=== PATIENT | female | born 1965 | race Two or more races ===

== ENCOUNTER 2017-06-26 10:04 | Emergency (ER) | payer OTHER ==
[2017-06-26 10:09] VITALS: BP 138/78; PULSE 63; TEMP 97.8; BMI 30.7
[2017-06-26] MEDS ORDERED: IBUPROFEN 600 MG TABLET (FP) PO ONE ×2 (11:00→11:02)
[2017-06-26] MEDS ORDERED: ALBUTEROL SO4 0.083% IH SOL 2.5 MG/3 ML VIAL.NEB. NEB ONE ×2 (11:00→11:02)
--- NOTE | 2017-06-26 11:03 | PDOC ---
History of Present Illness - General Chief Complaint: Cold Symptoms Stated Complaint: SICK Time Seen by Provider: 06/26/17 10:44 History Source: Patient Exam Limitations: No Limitations - History of Present Illness Initial Comments: 06/26/17 11:01 52 yr female with cough and hoars voice for 4 days no fever, arrived from [facility] yesterday. Pt denies chest pain or SOB, no medical history or allergies. Severity: reports: mild Past History - Past Medical History Allergies/Adverse Reactions: Allergies Allergy/AdvReac Type Severity Reaction Status Date / Time No Known Allergies Allergy Verified 06/26/17 10:09 Home Medications: Ambulatory Orders Benzocaine/Menthol [Cepacol Sore Throat Lozenge] 1 each MM TID PRN #20 lozenge 06/26/17 COPD: No HTN: Yes - Suicide/Smoking/Psychosocial Hx Smoking History: Never smoked Information on smoking cessation initiated: No Hx Alcohol Use: No Drug/Substance Use Hx: No Substance Use Type: None Respiratory Specific PMHX - Complaint Specific PMHX Angina: No Bronchitis: No Pneumonia: No Pulmonary Embolus: No TB (Tuberculosis): No Review of Systems - Review of Systems Able to Perform ROS?: Yes Is the patient limited Swedish proficient: Yes Constitutional: No: Symptoms Reported HEENTM: Yes: Symptoms Reported Respiratory: Yes: Symptoms reported *Physical Exam - Vital Signs Last Vital Signs Temp Pulse Resp BP Pulse Ox 97.8 F 63 19 138/78 100 06/26/17 10:06 06/26/17 10:06 06/26/17 10:06 06/26/17 10:06 06/26/17 10:06 - Physical Exam General Appearance: Yes: Nourished, Appropriately Dressed HEENT: positive: EOMI, MICHAEL, Normal ENT Inspection, TMs Normal, Pharynx Normal, Muffled/Hoarse voice Neck: positive: Supple. negative: Lymphadenopathy (R), Lymphadenopathy (L), Thyromegaly Respiratory/Chest: positive: Lungs Clear, Normal Breath Sounds. negative: Chest Tender, Rhonchi, Stridor, Wheezing Cardiovascular: positive: Regular Rhythm, Regular Rate Gastrointestinal/Abdominal: positive: Normal Bowel Sounds, Soft Musculoskeletal: positive: Normal Inspection Extremity: positive: Normal Capillary Refill, Normal Inspection, Normal Range of Motion Integumentary: positive: Normal Color, Dry, Warm Neurologic: positive: Fully Oriented, Alert, Normal Mood/Affect, Normal Response , Motor Strength 5 Medical Decision Making - Medical Decision Making 06/26/17 11:03 cc: cough hoars voice for 4 days worse after flying on airplane from no fever no chills has dry cough no medical history or allergies will give motrin and albuterol neb *DC/Admit/Observation/Transfer Diagnosis at time of Disposition: Common cold, Viral URI with cough - Discharge Dispostion Disposition: HOME Condition at time of disposition: Good - Prescriptions Prescriptions: Benzocaine/Menthol [Cepacol Sore Throat Lozenge] 1 each MM TID PRN #20 lozenge PRN Reason: sore throat - Referrals Referrals: Matilda Riddle MD [Primary Care Provider] - [facility] [Outside] - Patient Instructions Printed Discharge Instructions: DI for Common Cold, How to Avoid a Cold or Flu Additional Instructions: drink pleanty of fluids take cepacol for throat pain take motrin 600mg every 6hrs for pain or fever (over the counter advil, motrin or ibuprofen ) any over the counter cough medicine you like such as Delsym or Mucinex follow at the clinic in 24-48hrs for follow up or with Return to ER if worse beber omar cantidad de fluidos rajendra cepacol para el dolor de garg[place] rajendra motrin 600 mg cada 6 horas para el dolor o la fiebre (advil, motrin o ibuprofeno) cualquier medicamento para la tos de venta logan que le guste, jonnie Delsym o Mucinex seguir en la clnica en 24-48 horas para seguimiento Volver a ER si empeora Print Language: EQUATORIAL GUINEAN - Post Discharge Activity Forms/Work/School Notes: Back to Work
== END 2017-06-26 11:20 | disposition home or self-care (01) ==
LOC: JERFT 10:04
PROC: 3E0F7GC Introduction of Other Therapeutic Substance into Respiratory Tract, Via Natural or Artificial Opening (ICD-10-PCS; principal; 2017-06-26)
DX: J06.9 Acute upper respiratory infection, unspecified (principal); B97.89 Other viral agents as the cause of diseases classified elsewhere
CPT/HCPCS: 94640; 99281-25

== ENCOUNTER 2019-02-14 08:43 | Inpatient (IN) | payer OTHER ==
[2019-02-14] MEDS ORDERED: SODIUM CHLORIDE 500 ML IV STA (09:24)
[2019-02-14] MEDS ORDERED: ASPIRIN 81 MG CHEWABLE TABLETS PO ONE (09:24)
--- NOTE | 2019-02-14 09:29 | PDOC ---
History of Present Illness - General Chief Complaint: Headache Stated Complaint: HEADACHE/ WEAKNESS Time Seen by Provider: 02/14/19 09:10 History Source: Patient Exam Limitations: Language Barrier - History of Present Illness Initial Comments: Yulissa Washington is a 53 yo F w a significant pmh of HTN on Norvasc who presents to the [facility] ER via private auto accompanied by her boyfriend with a headache associated with right facial weakness, right arm and leg tingling, nausea, blurry vision, and high blood pressure. The patient states she ran out of her norvasc at home and has not taken the medication for the past 4 or 5 days. The patient states her symptoms all began yesterday morning around 10 am. She thought they would go away but when she woke up today and was still symptomatic she decided to come to the ER to be evaluated. She states the headache is around a 7/10, is not the worst headache of her life, was not worst at onset and gradually worsened over the past 24 hours. She has been feeling abnormal sensations in her right face, right arm and leg since yesterday. She endorses numbness and tingling in her right face, right arm, and right leg, but denies any weakness. The patient endorses mild nausea since yesterday but no emesis. She states her BP measurements at home have ranged from 160-180 systolic which is higher than normal for her. Patient denies having chest pain, SOB, or difficulty breathing. Denies back pain. Denies worst headache of her life. Denies dysuria, frequency, or urgency. Denies having any difficulty walking. Denies any room spinning. LMP: Currently on her period PCP: Dr. Lara Neurologist: None PSH: Allergies: Seasonal, NKDA Social Hx: Drinks beers recreationally. Denies smoking or illicit drug usage. Past History - Past Medical History Allergies/Adverse Reactions: Allergies Allergy/AdvReac Type Severity Reaction Status Date / Time No Known Allergies Allergy Verified 02/14/19 08:57 Home Medications: Ambulatory Orders Amlodipine Besylate [Norvasc -] 10 mg PO DAILY 02/14/19 COPD: No HTN: Yes - Immunization History Immunization Up to Date: Yes - Suicide/Smoking/Psychosocial Hx Smoking History: Never smoked Information on smoking cessation initiated: No Hx Alcohol Use: No Drug/Substance Use Hx: No Substance Use Type: None Review of Systems - Review of Systems Able to Perform ROS?: Yes Comments:: CONSTITUTIONAL: Present: generalized weakness, malaise Absent: fever, chills, diaphoresis, loss of appetite HEENT: Present: Visual changes Absent: rhinorrhea, nasal congestion, throat pain, throat swelling, difficulty swallowing, mouth swelling, ear pain, eye pain CARDIOVASCULAR: Absent: chest pain, syncope, palpitations, irregular heart rate, lightheadedness , peripheral edema RESPIRATORY: Absent: cough, shortness of breath, dyspnea with exertion, orthopnea, wheezing, stridor, hemoptysis GASTROINTESTINAL: Present: Nausea Absent: abdominal pain, abdominal distension, vomiting, diarrhea, constipation, melena, hematochezia GENITOURINARY: Absent: dysuria, frequency, urgency, hesitancy, hematuria, flank pain, genital pain MUSCULOSKELETAL: Absent: myalgia, arthralgia, joint swelling SKIN: Absent: rash, itching, pallor HEMATOLOGIC/IMMUNOLOGIC: Absent: easy bleeding, easy bruising, lymphadenopathy, frequent infections ENDOCRINE: Absent: unexplained weight gain, unexplained weight loss, heat intolerance, cold intolerance NEUROLOGIC: Present: headache, focal weakness and paresthesias Absent: dizziness, unsteady gait, seizure, mental status changes, bladder or bowel incontinence PSYCHIATRIC: Absent: anxiety, depression, suicidal or homicidal ideation, hallucinations. *Physical Exam - Vital Signs Last Vital Signs Temp Pulse Resp BP Pulse Ox 97.8 F 73 16 175/102 H 100 02/14/19 08:58 02/14/19 08:58 02/14/19 08:58 02/14/19 08:58 02/14/19 08:58 - Physical Exam Comments: GENERAL: Well developed, well nourished. Awake and alert. No acute distress. HEENT: Normocephalic, atraumatic. PERRLA, EOMI. No conjunctival pallor. Sclera are non- icteric. Moist mucous membranes. Oropharynx is clear. NECK: Supple. Full ROM. No lymphadenopathy. CARDIOVASCULAR: Regular rate and rhythm. No murmurs, rubs, or gallops. Distal pulses are 2+ and symmetric. PULMONARY: No evidence of respiratory distress. Lungs clear to auscultation bilaterally. No wheezing, rales or rhonchi. ABDOMINAL: Soft. Non-tender. Non-distended. No rebound or guarding. No organomegaly. Normoactive bowel sounds. MUSCULOSKELETAL Normal range of motion at all joints. No bony deformities or tenderness. No CVA tenderness. EXTREMITIES: No cyanosis. No clubbing. No edema. No calf tenderness. SKIN: Warm and dry. Normal capillary refill. No rashes. No jaundice. NEUROLOGICAL: Alert, awake, appropriate. Cranial nerves 2-12 intact. No deficits to light touch in face, upper extremities and lower extremities. No motor deficits in the in face, upper extremities and lower extremities. Normal speech. Gait is normal without ataxia including tandem gait. PSYCHIATRIC: Cooperative. Good eye contact. Appropriate mood and affect. ED Treatment Course - LABORATORY CBC & Chemistry Diagram: 02/14/19 09:24 02/14/19 09:24 - RADIOLOGY Radiology Studies Ordered: Category Date Time Status HEAD CT WITHOUT CONTRAST [CT] Stat CT Scan 02/14/19 09:26 Ordered CHEST X-RAY PORTABLE* [RAD] Stat Radiology 02/14/19 09:25 Ordered Medical Decision Making - Medical Decision Making Yulissa Washington is a 53 yo F w a significant pmh of HTN on [facility] who presents to the [facility] ER via private auto accompanied by her boyfriend with a headache associated with right facial weakness, right arm and leg tingling, nausea, blurry vision, and high blood pressure. The patient states she ran out of her nor[employer] Medical Devices at home and has not taken the medication for the past 4 or 5 days. The patient states her symptoms all began yesterday morning around 10 am. She thought they would go away but when she woke up today and was still symptomatic she decided to come to the ER to be evaluated. She states the headache is around a 7/10, is not the worst headache of her life, was not worst at onset and gradually worsened over the past 24 hours. She has been feeling abnormal sensations in her right face, right arm and leg since yesterday. She endorses numbness and tingling in her right face, right arm, and right leg, but denies any weakness. The patient endorses mild nausea since yesterday but no emesis. She states her BP measurements at home have ranged from 160-180 systolic which is higher than normal for her. Patient denies having chest pain, SOB, or difficulty breathing. Denies back pain. Denies worst headache of her life. Denies dysuria, frequency, or urgency. Denies having any difficulty walking. Denies any room spinning. LMP: Currently on her period Vital Signs Temp Pulse Resp BP Pulse Ox 97.8 F 74 18 164/86 99 02/14/19 08:58 02/14/19 09:47 02/14/19 09:47 02/14/19 09:47 02/14/19 09:47 DDx IBNLT: TIA/CVA, migraine, intracranial hemorrhage/SAH, medication non- compliance, hypertensive emergency/urgency, electrolyte/metabolic disturbance, dehydration, peripheral vertigo Plan: Stroke workup - labs, head ct, urine, EKG, analgesia, aspirin, gentle IV hydration, re-assess, neuro, consult, probable admission to stroke floor/ telemetry Labs: Lipid panel, CK and CKMB abnormal. Head CT: No acute pathology or bleed Neuro Consult: Placed call to Dr. Adair's office. [employer] said he will call back. Spoke with Dr. Vera who is covering. Dr. Vera agrees with our management and says he will come and see the patient later today. Disposition: Admit to stroke floor Called Dr. Lara's office who said to overhead Page Dr. Stuart Gave report to Dr. Stuart who accepted admission to Dr. Lara's service *DC/Admit/Observation/Transfer Diagnosis at time of Disposition: Weakness, Numbness and tingling Headache Qualifiers: Headache type: unspecified Headache chronicity pattern: acute headache Intractability: not intractable Qualified Code(s): R51 - Headache - Discharge Dispostion Condition at time of disposition: Stable Decision to Admit order: Yes - Referrals Referrals: Diane Rios MD [Primary Care Provider] - - Patient Instructions - Post Discharge Activity NIH Stroke Scale - Last Known Well Date/Time & Onset Date Last Known Well: 02/13/19 Time Last Known Well: 10:00 - Initial Evaluation Level of consciousness: Alert Ask patient the month and their age: Answers both correctly Ask patient to open & close eyes; make fist and let go: Obeys both correctly Best gaze (horizontal eye movement): Normal Visual field testing: No visual field loss Facial paresis (Show teeth/raise eyebrows/close eyes tight): Normal symmetrical movement Motor Function: Left Arm: Normal Motor Function: Right Arm: Normal (extends arm 90 (or 45) degrees for 10 seconds without drift Motor Function: Left Leg: Normal (extends leg 30 degrees for 5 seconds without drift) Motor Function: Right Leg: Drift Limb Ataxia: No ataxia Sensory(Use pinprick test arms,legs,trunk,face/side to side): Normal Best language (Describe picture, name items, read sentences): No Aphasia Dysarthria (read several words): Normal articulation Extinction and Inattention: No abnormality - Total Score NIH Stroke Scale Score: 1 tPA Exclusion checklist 3-4.5h - Time Elapsed Date last known well: 02/13/19 Time last known well: 10:00 Elaspsed time: 1 Day(s) and 2 Hour(s) and 26 Minutes - Thrombolytic Therapy Candidate Is patient eligible for thrombolytic therapy: No - Exclusion Criteria 3-4.5 hr SBP greater than 185 or DBP greater than 110mmHg despite tx: No Recent IC/spinal surgery,head trauma or stroke<3mos.: No Hx IC hemorrhage, IC neoplasm, AV malformation or aneurysm: No Active internal bleeding: No Blding diathesis(low plt ct, inc PTT,INR>1.7 or use of NOAC): No Symptoms suggest subarachnoid hemorrhage: No CT demonstrates multilobar infarct(>1/3 cerebral hemiphere): No Arterial puncture at noncompressible site in previous 7 days: No Blood glucose concentration less than 50mg/dL (2.7mmol/L): No - Relative Exclusion Criteria 3-4.5 hr Life expectancy <1 yr or severe co-morbid illness: No : No Patient/family refused: No Rapid improvement: Yes Stroke severity too mild: Yes Recent acute NV (w/in previous 3 months): No Seizure at onset with postictal residual neuro impairments: No Major surgery or serious trauma w/in previous 14 days: No Recent GI or hemorrhage (w/in previous 21 days): No - Add'l Relative Exclusion 3-4.5 hr Age > 80: No Hx of both diabetes AND prior ischemic stroke: No Taking an oral anticoagulant regardless of INR: No NIHSS >25: No - Ineligibility reason(s) Reasons No tPA given: Outside of window - delayed arrival
[2019-02-14] MEDS ORDERED: ACETAMINOPHEN 1000 MG/100 ML VIAL (NON FORMULARY) IVPB ONE (09:31)
[2019-02-14] MEDS ORDERED: ASPIRIN 81 MG CHEWABLE TABLETS ONE (09:33)
[2019-02-14] MEDS ORDERED: ACETAMINOPHEN INJECTION 100 ML IVPB ONE (09:33)
[2019-02-14 09:51] LABS: BASO % 0.7 % (0-2.0); EOS % 8.4 % (0-4.5); HEMATOCRIT 43.2 % (32.4-45.2); HEMOGLOBIN 14.5 GM/dL (10.7-15.3); LYMPH % 33.3 % (8-40); MCH 28.7 pg (25.7-33.7); MCHC 33.5 g/dl (32.0-36.0); MEAN CELL VOLUME 85.6 fl (80-96); MEAN PLT VOLUME 8.5 fl (7.5-11.1); MONO % 7.1 % (3.8-10.2); NEUT % 50.5 % (42.8-82.8); PLATELET COUNT 241 K/MM3 (134-434); RBC 5.04 M/mm3 (3.60-5.2); RDW 13.7 % (11.6-15.6)
[2019-02-14 10:01] LABS: INR 1.02 (0.83-1.09)
[2019-02-14 10:24] LABS: ALBUMIN 4.4 g/dl (3.4-5.0); BILIRUBIN,TOTAL 0.7 mg/dL (0.2-1); BLOOD UREA NITROGEN 13.6 mg/dL (7-18); CALCIUM 9.8 mg/dL (8.5-10.1); CREATININE 0.8 mg/dL (0.55-1.3); POTASSIUM 3.8 mmol/L (3.5-5.1); TOT PROT 8.5 g/dl (6.4-8.2)
[2019-02-14 11:35] LABS: EPI CELLS 0.7 /HPF (0-5/HPF); HYALINE CASTS 0 /lpf (0-8); URINE APPEARANCE Error; URINE BACTERIA 5.6 /hpf (NEGATIVE); URINE BILIRUBIN NEGATIVE (NEGATIVE); URINE COLOR YELLOW; URINE GLUCOSE (UA) NEGATIVE (NEGATIVE); URINE KETONE NEGATIVE (NEGATIVE); URINE LEUK ESTERASE NEGATIVE (NEGATIVE); URINE NITRITE NEGATIVE (NEGATIVE); URINE PROTEIN NEGATIVE (NEGATIVE); URINE RBC 3 /hpf (0-4); URINE UROBILINOGEN 0.2 mg/dL (0.2-1.0); URINE WBC 0 /hpf (0-5)
--- NOTE | 2019-02-14 12:06 | PDOC ---
Documentation entered by Mary Ash SCRIBE, acting as scribe for Kylie Schmidt MD. Kylie Schmidt MD: This documentation has been prepared by the scribe, Mary Ash SCRIBE, under my direction and personally reviewed by me in its entirety. I confirm that the documentation accurately reflects all work, treatment, procedures, and medical decision making performed by me. Attending Attestation - Resident Resident Name: Camilo Feliciano - ED Attending Attestation I have performed the following: I have examined & evaluated the patient, The case was reviewed & discussed with the resident, I agree w/resident's findings & plan, Exceptions are as noted - HPI HPI: 02/14/19 09:44 The patient is a 53-year-old female, with a past medical history of HTN (on Norvasc), who presents to the ED with elevated BP and headache associated with RUE/RLE tingling, RT facial weakness, blurry vision, and nausea that began yesterday morning at 10 AM. The patient reports that she ran out of her BP medication 4-5 days ago. The patient denies any fevers, chills, vomiting, diarrhea, or abdominal pain. Denies any chest pain or shortness of breath. Denies any urinary symptoms. Denies any dizziness or lightheadedness. Allergies: NKA, seasonal. Surgical History: Social History: Reports social drinking. Denies any tobacco or drug use. PCP: Dr. Lara - Physicial Exam PE: 02/14/19 09:46 GENERAL: Awake, alert, and fully oriented, in no acute distress HEAD: No signs of trauma EYES: PERRLA, EOMI, sclera anicteric, conjunctiva clear ENT: Auricles normal inspection, hearing grossly normal, nares patent, oropharynx clear without exudates. Moist mucosa NECK: Normal ROM, supple, no lymphadenopathy, JVD, or masses LUNGS: Breath sounds equal, clear to auscultation bilaterally. No wheezes, and no crackles HEART: Regular rate and rhythm, normal S1 and S2, no murmurs, rubs or gallops ABDOMEN: Soft, nontender, normoactive bowel sounds. No guarding, no rebound. No masses EXTREMITIES: Normal range of motion, no edema. No clubbing or cyanosis. No cords, erythema, or tenderness NEUROLOGICAL: Cranial nerves II through XII grossly intact. Normal speech, normal gait SKIN: Warm, Dry, normal turgor, no rashes or lesions noted. - Medical Decision Making 02/14/19 11:19 Pt presents to the ED complaining of facial numbness, dizziness, and headache. Neurologically intact in the ED except for mildly decreased skin sensation on the R side. Differential included TIA, CVA, less likely subarachnoid. CT negative for bleed. Will check labs and admit to medicine for TIA work up. 02/14/19 12:04
[2019-02-14] MEDS ORDERED: SODIUM CHLORIDE 1,000 ML IV SCH (13:30)
--- NOTE | 2019-02-14 13:50 | HP ---
Admitting History and Physical - Primary Care Physician PCP: Sharon Lara - Admission Chief Complaint: came in for NEWSOME for 3 days History of Present Illness: The patient is a 53-year-old female, with a past medical history of HTN (on Norvasc), who presents to the ED with elevated BP and headache associated with RUE/RLE tingling, RT facial weakness, blurry vision, and nausea that began yesterday morning at 10 AM. The patient reports that she ran out of her BP medication 4-5 days ago. she called her PMD to get a refil she was told that it was sent to pharmacy but when she called pharmacy nothing was available for her she has also been feeling weak and tired and fatigue lately, no CP no SOB History Source: Patient - Past Medical History Cardiovascular: Yes: HTN, Hyperlipdemia - Smoking History Smoking history: Never smoked - Alcohol/Substance Use Hx Alcohol Use: No Home Medications - Allergies Allergies/Adverse Reactions: Allergies Allergy/AdvReac Type Severity Reaction Status Date / Time No Known Allergies Allergy Verified 02/14/19 08:57 - Home Medications Home Medications: Ambulatory Orders Amlodipine Besylate [Norvasc -] 10 mg PO DAILY 02/14/19 Review of Systems - Review of Systems HENT: reports: Other (Headache) Physical Examination Vital Signs: Vital Signs Temperature 97.8 F 02/14/19 08:58 Pulse Rate 56 L 02/14/19 12:25 Respiratory Rate 18 02/14/19 12:25 Blood Pressure 118/68 02/14/19 12:25 O2 Sat by Pulse Oximetry (%) 98 02/14/19 12:25 Constitutional: Yes: Calm Cardiovascular: Yes: Regular Rate and Rhythm, S1, S2 Respiratory: Yes: CTA Bilaterally Gastrointestinal: Yes: Normal Bowel Sounds, Soft Edema: No Neurological: Yes: Alert, Oriented Labs: CBC, BMP 02/14/19 09:24 02/14/19 09:24 Imaging - Results Cat Scan: Report Reviewed Problem List - Problems (1) Headache Assessment/Plan: BP control CT head negative norvas Code(s): R51 - HEADACHE Qualifiers: Headache type: unspecified Headache chronicity pattern: acute headache Intractability: not intractable Qualified Code(s): R51 - Headache (2) Numbness and tingling Assessment/Plan: carotid doppler lipid panel noted gage first let CK trend down- hold off on statin start lovaza /zetia once labs improved ivf hydration trend the CK Code(s): R20.0 - ANESTHESIA OF SKIN; R20.2 - PARESTHESIA OF SKIN (3) HLD (hyperlipidemia) Assessment/Plan: will hold of statin till CK improved start lovaza Code(s): E78.5 - HYPERLIPIDEMIA, UNSPECIFIED
[2019-02-14 14:13] VITALS: BMI 30.8
[2019-02-14] MEDS ORDERED: ACETAMINOPHEN 325 MG TABLET (FP) ONE (15:43)
--- NOTE | 2019-02-14 17:06 | CON.CARD ---
Consult Consult Specialty:: Cardiology Reason for Consultation:: HTN - History of Present Illness History of Present Illness: 53-year-old female, with HTN (on Norvasc), who presents to the ED with elevated BP and headache associated facial asymmetry, blurry vision, and nausea that began yesterday morning at 10 AM. The patient reports that she ran out of her BP medication 4-5 days ago. Feeling better. No dyspnea. No chest pain Stress and Echo were normal in june 2018 - History Source History Provided By: Patient Limitations to Obtaining History: No Limitations - Past Medical History Cardio/Vascular: Yes: HTN, Hyperlipdemia - Alcohol/Substance Use Hx Alcohol Use: No - Smoking History Smoking history: Never smoked Have you smoked in the past 12 months: No Home Medications - Allergies Allergies/Adverse Reactions: Allergies Allergy/AdvReac Type Severity Reaction Status Date / Time No Known Allergies Allergy Verified 02/14/19 08:57 - Home Medications Home Medications: Ambulatory Orders Amlodipine Besylate [Norvasc -] 10 mg PO DAILY 02/14/19 Review of Systems - Review of Systems Constitutional: reports: No Symptoms Eyes: reports: No Symptoms HENT: reports: No Symptoms Neck: reports: No Symptoms Cardiovascular: reports: No Symptoms Respiratory: reports: No Symptoms Gastrointestinal: reports: No Symptoms Genitourinary: reports: No Symptoms Vital Signs: Vital Signs Temperature 97.8 F 02/14/19 13:00 Pulse Rate 54 L 02/14/19 13:00 Respiratory Rate 20 02/14/19 13:00 Blood Pressure 144/84 02/14/19 13:00 O2 Sat by Pulse Oximetry (%) 100 02/14/19 13:00 Constitutional: Yes: Well Nourished, No Distress, Calm Eyes: Yes: Conjunctiva Clear, EOM Intact HENT: Yes: Atraumatic, Normocephalic Neck: Yes: Supple, Trachea Midline Respiratory: Yes: Regular, CTA Bilaterally Gastrointestinal: Yes: Normal Bowel Sounds, Soft Cardiovascular: Yes: Regular Rate and Rhythm JVD: No Carotid Bruit: No PMI: Non-Displaced Heart Sounds: Yes: S1, S2 Murmur: No: Systolic Murmur, Diastolic Murmur Edema: No - Other Data Labs, Other Data: CBC, BMP 02/14/19 09:24 02/14/19 09:24 INR, PTT INR 1.02 (0.83-1.09) 02/14/19 09:24 Troponin, BNP 02/14/19 02/14/19 09:24 15:15 Troponin I < 0.02 < 0.02 Troponin, BNP 02/14/19 02/14/19 09:24 15:15 Troponin I < 0.02 < 0.02 Imaging - Results EKG: Image Reviewed (NSR no ST T chagnes.) Problem List - Problems (1) HTN (hypertension) Code(s): I10 - ESSENTIAL (PRIMARY) HYPERTENSION (2) HLD (hyperlipidemia) Code(s): E78.5 - HYPERLIPIDEMIA, UNSPECIFIED (3) Headache Code(s): R51 - HEADACHE Qualifiers: Headache type: unspecified Headache chronicity pattern: acute headache Intractability: not intractable Qualified Code(s): R51 - Headache Assessment/Plan Transient double vision and facial asymmetry now improved. Severe HTN Continue home BP medications. Had run out of meds now BP improved. Will see as needed.
--- NOTE | 2019-02-14 18:56 | CON.NEURO ---
Consult Consult Specialty:: NEUROLOGY-YORDY ROSADO Reason for Consultation:: ?/ TIA - History of Present Illness History of Present Illness: The patient is a 53-year-old female, with a past medical history of HTN (on Norvasc), who presents to the ED with elevated BP and headache associated with RUE/RLE tingling, RT facial weakness, blurry vision, and nausea that began yesterday morning at 10 AM. The patient reports that she ran out of her BP medication 4-5 days ago. she called her PMD to get a refil she was told that it was sent to pharmacy but when she called pharmacy nothing was available for her -She denies all symptoms now, states feels"a little dizzy" otherwise no symptoms. - History Source History Provided By: Patient - Past Medical History Cardio/Vascular: Yes: HTN, Hyperlipdemia - Alcohol/Substance Use Hx Alcohol Use: No - Smoking History Smoking history: Never smoked Have you smoked in the past 12 months: No Home Medications - Allergies Allergies/Adverse Reactions: Allergies Allergy/AdvReac Type Severity Reaction Status Date / Time No Known Allergies Allergy Verified 02/14/19 08:57 - Home Medications Home Medications: Ambulatory Orders Amlodipine Besylate [Norvasc -] 10 mg PO DAILY 02/14/19 Physical Exam-Neuro Vital Signs: Vital Signs Temperature 97.8 F 02/14/19 13:00 Pulse Rate 57 L 02/14/19 13:00 Respiratory Rate 20 02/14/19 13:00 Blood Pressure 144/84 02/14/19 13:00 O2 Sat by Pulse Oximetry (%) 100 02/14/19 14:00 Labs: CBC, BMP 02/14/19 09:24 02/14/19 09:24 INR, PTT INR 1.02 (0.83-1.09) 02/14/19 09:24 - Neuro Exam DTR's: 1+ Left Achilles, 1+ Right Achilles, 2+ Left Bicep, 2+ Right Bicep, 2+ Left Tricep, 2+ Right Tricep, 2+ Left Brachioradialis, 2+ Right Brachioradialis Babinski: Absent Motor Strength: 5/5: Left Arm, Right Arm, Left Leg, Right Leg (+ RUE levitation( sensory) drift.) Gait: Normal Imaging - Results Cat Scan: Report Reviewed (Reported without acute abn.) Assessment/Plan Pt. with right sensory symptoms, remitted right facial droop, has right UE sensory drift only. DDx. includes left thalamocapsular ischemic event, vert/ basilar TIA. MRI brain Cont. ADSA 81mg daily, high dose statin. Thank you, Sukhdev Vera MD
[2019-02-14] MEDS: OMEGA-3 ACID ETHYL ESTERS (FATTY-ACIDS) 1 GM CAPSULE (FP) PO SCH (21:30)
[2019-02-14] MEDS ORDERED: ACETAMINOPHEN 325 MG TABLET (FP) PO ONE (21:44)
[2019-02-15 08:31] LABS: BASO % 0.8 % (0-2.0); EOS % 8.6 % (0-4.5); HEMATOCRIT 39.5 % (32.4-45.2); HEMOGLOBIN 13.2 GM/dL (10.7-15.3); LYMPH % 26.5 % (8-40); MCH 28.7 pg (25.7-33.7); MCHC 33.5 g/dl (32.0-36.0); MEAN CELL VOLUME 85.6 fl (80-96); MEAN PLT VOLUME 8.5 fl (7.5-11.1); MONO % 5.8 % (3.8-10.2); NEUT % 58.3 % (42.8-82.8); PLATELET COUNT 235 K/MM3 (134-434); RBC 4.61 M/mm3 (3.60-5.2); RDW 13.3 % (11.6-15.6); WHITE BLOOD COUNT 4.3 K/mm3 (4.0-10.0)
[2019-02-15 09:00] LABS: ALBUMIN 3.8 g/dl (3.4-5.0); BILIRUBIN,TOTAL 0.5 mg/dL (0.2-1); BLOOD UREA NITROGEN 11.6 mg/dL (7-18); CALCIUM 8.7 mg/dL (8.5-10.1); CREATININE 0.7 mg/dL (0.55-1.3); MAGNESIUM 2.1 mg/dL (1.8-2.4); POTASSIUM 4.1 mmol/L (3.5-5.1); TOT PROT 7.2 g/dl (6.4-8.2)
--- NOTE | 2019-02-15 10:15 | PN ---
Progress Note (short form) - Note Progress Note: HPI : 53-year-old female, with a past medical history of HTN (on Norvasc), who presents to the ED with elevated BP and headache associated with RUE/RLE tingling, RT facial weakness, blurry vision, and nausea that began yesterday morning at 10 AM. The patient reports that she ran out of her BP medication 4-5 days ago. she called her PMD to get a refil she was told that it was sent to pharmacy but when she called pharmacy nothing was available for her -She denies all symptoms now, states feels"a little dizzy" otherwise no symptoms. FU : no new Sx Dopplers (-), awaiting MRI - History Source History Provided By: Patient - Past Medical History Cardio/Vascular: Yes: HTN, Hyperlipdemia - Alcohol/Substance Use Hx Alcohol Use: No - Smoking History Smoking history: Never smoked Have you smoked in the past 12 months: No Home Medications - Allergies Allergies/Adverse Reactions: Allergies Allergy/AdvReac Type Severity Reaction Status Date / Time No Known Allergies Allergy Verified 02/14/19 08:57 - Home Medications Home Medications: Ambulatory Orders Amlodipine Besylate [Norvasc -] 10 mg PO DAILY 02/14/19 Physical Exam-Neuro Vital Signs: Vital Signs Temperature 98.0 F 02/15/19 09:32 Pulse Rate 68 02/15/19 09:32 Respiratory Rate 20 02/15/19 09:32 Blood Pressure 114/71 02/15/19 09:32 O2 Sat by Pulse Oximetry (%) 99 02/15/19 09:00 CBCD WBC 4.3 K/mm3 (4.0-10.0) 02/15/19 07:18 RBC 4.61 M/mm3 (3.60-5.2) 02/15/19 07:18 Hgb 13.2 GM/dL (10.7-15.3) 02/15/19 07:18 Hct 39.5 % (32.4-45.2) 02/15/19 07:18 MCV 85.6 fl (80-96) 02/15/19 07:18 MCHC 33.5 g/dl (32.0-36.0) 02/15/19 07:18 RDW 13.3 % (11.6-15.6) 02/15/19 07:18 Plt Count 235 K/MM3 (134-434) 02/15/19 07:18 MPV 8.5 fl (7.5-11.1) 02/15/19 07:18 CMP Sodium 141 mmol/L (136-145) 02/15/19 07:18 Potassium 4.1 mmol/L (3.5-5.1) 02/15/19 07:18 Chloride 110 mmol/L (98-107) H 02/15/19 07:18 Carbon Dioxide 25 mmol/L (21-32) 02/15/19 07:18 Anion Gap 5 MMOL/L (8-16) L 02/15/19 07:18 BUN 11.6 mg/dL (7-18) 02/15/19 07:18 Creatinine 0.7 mg/dL (0.55-1.3) 02/15/19 07:18 Calcium 8.7 mg/dL (8.5-10.1) 02/15/19 07:18 Total Bilirubin 0.5 mg/dL (0.2-1) 02/15/19 07:18 AST 24 U/L (15-37) 02/15/19 07:18 ALT 24 U/L (13-61) 02/15/19 07:18 Alkaline Phosphatase 72 U/L (45-117) 02/15/19 07:18 Total Protein 7.2 g/dl (6.4-8.2) 02/15/19 07:18 Albumin 3.8 g/dl (3.4-5.0) 02/15/19 07:18 - Neuro Exam DTR's: 1+ Left Achilles, 1+ Right Achilles, 2+ Left Bicep, 2+ Right Bicep, 2+ Left Tricep, 2+ Right Tricep, 2+ Left Brachioradialis, 2+ Right Brachioradialis Babinski: Absent Motor Strength: 5/5: Left Arm, Right Arm, Left Leg, Right Leg (+ RUE levitation( sensory) drift.) Gait: Normal Imaging - Results Cat Scan: Report Reviewed (Reported without acute abn.) Assessment/Plan Pt. with right sensory symptoms, remitted right facial droop, has right UE sensory drift only. DDx. includes left thalamocapsular ischemic event, vert/basilar TIA. MRI brain-P Dopplers (-) BP improved Cont. ADSA 81mg daily, high dose statin. DR HERNANDEZ
[2019-02-15] MEDS: ASPIRIN 81 MG CHEWABLE TABLETS PO SCH (10:36)
[2019-02-15] MEDS: OMEGA-3 ACID ETHYL ESTERS (FATTY-ACIDS) 1 GM CAPSULE (FP) PO SCH ×2 (10:36→21:28)
--- NOTE | 2019-02-15 10:41 | PN ---
Progress Note, Physician History of Present Illness: no complaints - Current Medication List Current Medications: Active Medications Amlodipine Besylate (Norvasc -) 10 mg PO DAILY [facility] Aspirin (Asa -) 81 mg PO DAILY [facility] Last Admin: 02/15/19 10:36 Dose: 81 mg Atorvastatin Calcium (Lipitor -) 40 mg PO HS [facility] [id number] Ethyl Esters (Lovaza -) 2 gm PO BID [facility] Last Admin: 02/15/19 10:36 Dose: 2 gm - Objective Vital Signs: Vital Signs Temperature 98.0 F 02/15/19 09:32 Pulse Rate 68 02/15/19 09:32 Respiratory Rate 20 02/15/19 09:32 Blood Pressure 114/71 02/15/19 09:32 O2 Sat by Pulse Oximetry (%) 99 02/15/19 09:00 Cardiovascular: Yes: Regular Rate and Rhythm Respiratory: Yes: Regular, CTA Bilaterally Gastrointestinal: Yes: Normal Bowel Sounds, Soft Neurological: Yes: Alert, Oriented Labs: CBC, BMP 02/15/19 07:18 02/15/19 07:18 INR, PTT INR 1.02 (0.83-1.09) 02/14/19 09:24 Assessment/Plan - Problems (1) Headache Assessment/Plan: BP control CT head negative norvasc mri Code(s): R51 - HEADACHE Qualifiers: Headache type: unspecified Headache chronicity pattern: acute headache Intractability: not intractable Qualified Code(s): R51 - Headache (2) Numbness and tingling Assessment/Plan: carotid doppler lipid panel noted gage first let CK trend down- restart statin start lovaza /zetia once labs improved ivf hydration trend the CK Code(s): R20.0 - ANESTHESIA OF SKIN; R20.2 - PARESTHESIA OF SKIN (3) HLD (hyperlipidemia) Assessment/Plan: resume statin start lovaza Code(s): E78.5 - HYPERLIPIDEMIA, UNSPECIFIED
--- NOTE | 2019-02-15 11:34 | EKG ---
Test Reason : Blood Pressure : / mmHG Vent. Rate : 072 BPM Atrial Rate : 072 BPM P-R Int : 106 ms QRS Dur : 110 ms QT Int : 442 ms P-R-T Axes : 048 018 011 degrees QTc Int : 483 ms POOR DATA QUALITY, INTERPRETATION MAY BE ADVERSELY AFFECTED SINUS RHYTHM WITH SHORT OH OTHERWISE NORMAL ECG NO PREVIOUS ECGS AVAILABLE Confirmed by KWABENA AYALA MD ([id number]) on 02/15/2019 11:33:43 AM Referred By: Confirmed By:KWABENA AYALA MD
[2019-02-15] MEDS: amLODIPine BESYLATE 10 MG TABLET (FP) PO SCH (21:29)
[2019-02-15] MEDS ORDERED: ACETAMINOPHEN 325 MG TABLET (FP) ONE (21:34)
[2019-02-15] MEDS ORDERED: ATORVASTATIN CA 40 MG TABLET (FP) PO SCH (22:00)
[2019-02-16] MEDS: OMEGA-3 ACID ETHYL ESTERS (FATTY-ACIDS) 1 GM CAPSULE (FP) PO SCH (10:04)
[2019-02-16] MEDS: ASPIRIN 81 MG CHEWABLE TABLETS PO SCH (10:04)
[2019-02-16] MEDS: amLODIPine BESYLATE 10 MG TABLET (FP) PO SCH (10:05)
[2019-02-16] MEDS ORDERED: BISACODYL 5 MG TABLET.DR (FP) PO ONE (10:26)
--- NOTE | 2019-02-16 10:26 | PN ---
Progress Note, Physician - Current Medication List Current Medications: Active Medications Amlodipine Besylate (Norvasc -) 10 mg PO DAILY [facility] Last Admin: 02/16/19 10:05 Dose: Not Given Aspirin (Asa -) 81 mg PO DAILY [facility] Last Admin: 02/16/19 10:04 Dose: 81 mg Atorvastatin Calcium (Lipitor -) 40 mg PO HS [facility] Last Admin: 02/15/19 21:28 Dose: Not Given Bisacodyl (Dulcolax -) 10 mg PO ONCE ONE Stop: 02/16/19 10:27 Nebivolol (Bystolic -) 5 mg PO DAILY [facility] [id number] Ethyl Esters (Lovaza -) 2 gm PO BID [facility] Last Admin: 02/16/19 10:04 Dose: 2 gm - Objective Vital Signs: Vital Signs Temperature 98.2 F 02/16/19 06:00 Pulse Rate 58 L 02/16/19 06:00 Respiratory Rate 20 02/16/19 06:00 Blood Pressure 133/75 02/16/19 06:00 O2 Sat by Pulse Oximetry (%) 99 02/15/19 09:00 Cardiovascular: Yes: Regular Rate and Rhythm Respiratory: Yes: Regular, CTA Bilaterally Gastrointestinal: Yes: Normal Bowel Sounds, Soft Labs: CBC, BMP 02/15/19 07:18 02/15/19 07:18 INR, PTT INR 1.02 (0.83-1.09) 02/14/19 09:24 Assessment/Plan - Problems (1) Headache Assessment/Plan: BP high today add bystolic CT head negative norvasc mri no stroke Code(s): R51 - HEADACHE Qualifiers: Headache type: unspecified Headache chronicity pattern: acute headache Intractability: not intractable Qualified Code(s): R51 - Headache (2) Numbness and tingling Assessment/Plan: carotid doppler lipid panel noted gage first let CK trend down- restart statin start lovaza /zetia once labs improved ivf hydration trend the CK Code(s): R20.0 - ANESTHESIA OF SKIN; R20.2 - PARESTHESIA OF SKIN (3) HLD (hyperlipidemia) Assessment/Plan: resume statin start lovaza Code(s): E78.5 - HYPERLIPIDEMIA, UNSPECIFIED
[2019-02-16] MEDS ORDERED: NEBIVOLOL 5 MG TABLET (FP) PO SCH (10:30)
[2019-02-16] MEDS ORDERED: PT OWN MED DRAWER 7, Y5N ONE ×2 (12:03→12:07)
--- NOTE | 2019-02-16 12:16 | PN ---
Progress Note (short form) - Note Progress Note: HPI : 53-year-old female, with a past medical history of HTN (on Norvasc), who presents to the ED with elevated BP and headache associated with RUE/RLE tingling, RT facial weakness, blurry vision, and nausea that began yesterday morning at 10 AM. The patient reports that she ran out of her BP medication 4-5 days ago. she called her PMD to get a refil she was told that it was sent to pharmacy but when she called pharmacy nothing was available for her -She denies all symptoms now, states feels"a little dizzy" otherwise no symptoms. FU : no new Sx , Bp slightly elevated Dopplers (-), MRI BRAIN (-) - History Source History Provided By: Patient - Past Medical History Cardio/Vascular: Yes: HTN, Hyperlipdemia - Alcohol/Substance Use Hx Alcohol Use: No - Smoking History Smoking history: Never smoked Have you smoked in the past 12 months: No Home Medications - Allergies Allergies/Adverse Reactions: Allergies Allergy/AdvReac Type Severity Reaction Status Date / Time No Known Allergies Allergy Verified 02/14/19 08:57 - Home Medications Home Medications: Ambulatory Orders Amlodipine Besylate [Norvasc -] 10 mg PO DAILY 02/14/19 Physical Exam-Neuro Vital Signs: Vital Signs Vital Signs Temperature 98 F 02/16/19 10:00 Pulse Rate 60 02/16/19 10:00 Respiratory Rate 20 02/16/19 10:00 Blood Pressure 161/100 02/16/19 10:30 O2 Sat by Pulse Oximetry (%) 98 02/16/19 09:00 CBCD WBC 4.3 K/mm3 (4.0-10.0) 02/15/19 07:18 RBC 4.61 M/mm3 (3.60-5.2) 02/15/19 07:18 Hgb 13.2 GM/dL (10.7-15.3) 02/15/19 07:18 Hct 39.5 % (32.4-45.2) 02/15/19 07:18 MCV 85.6 fl (80-96) 02/15/19 07:18 MCHC 33.5 g/dl (32.0-36.0) 02/15/19 07:18 RDW 13.3 % (11.6-15.6) 02/15/19 07:18 Plt Count 235 K/MM3 (134-434) 02/15/19 07:18 MPV 8.5 fl (7.5-11.1) 02/15/19 07:18 CMP Sodium 141 mmol/L (136-145) 02/15/19 07:18 Potassium 4.1 mmol/L (3.5-5.1) 02/15/19 07:18 Chloride 110 mmol/L (98-107) H 02/15/19 07:18 Carbon Dioxide 25 mmol/L (21-32) 02/15/19 07:18 Anion Gap 5 MMOL/L (8-16) L 02/15/19 07:18 BUN 11.6 mg/dL (7-18) 02/15/19 07:18 Creatinine 0.7 mg/dL (0.55-1.3) 02/15/19 07:18 Calcium 8.7 mg/dL (8.5-10.1) 02/15/19 07:18 Total Bilirubin 0.5 mg/dL (0.2-1) 02/15/19 07:18 AST 24 U/L (15-37) 02/15/19 07:18 ALT 24 U/L (13-61) 02/15/19 07:18 Alkaline Phosphatase 72 U/L (45-117) 02/15/19 07:18 Total Protein 7.2 g/dl (6.4-8.2) 02/15/19 07:18 Albumin 3.8 g/dl (3.4-5.0) 02/15/19 07:18 - Neuro Exam DTR's: 1+ Left Achilles, 1+ Right Achilles, 2+ Left Bicep, 2+ Right Bicep, 2+ Left Tricep, 2+ Right Tricep, 2+ Left Brachioradialis, 2+ Right Brachioradialis Babinski: Absent Motor Strength: 5/5: Left Arm, Right Arm, Left Leg, Right Leg (+ RUE levitation( sensory) drift.) Gait: Normal Imaging - Results Cat Scan: Report Reviewed (Reported without acute abn.) Assessment/Plan Pt. with right sensory symptoms, remitted right facial droop, has right UE sensory drift only. DDx. includes left thalamocapsular ischemic event, vert/basilar TIA. MRI brain-(-) Dopplers (-) BP improved Cont. ADSA 81mg daily, high dose statin. neurologically cleared for DC DR HERNANDEZ
[2019-02-16 13:33] VITALS: TEMP 98.2
--- NOTE | 2019-02-16 14:11 | DS ---
Physical Examination Vital Signs: Vital Signs Temperature 98.2 F 02/16/19 13:32 Pulse Rate 82 02/16/19 13:32 Respiratory Rate 20 02/16/19 13:32 Blood Pressure 125/87 02/16/19 13:32 O2 Sat by Pulse Oximetry (%) 98 02/16/19 09:00 Labs: CBC, BMP 02/15/19 07:18 02/15/19 07:18 Discharge Summary Reason For Visit: SENSORY DEFICIT PRESENT Current Active Problems HLD (hyperlipidemia) (Acute) HTN (hypertension) (Acute) Headache (Acute) Numbness and tingling (Acute) Weakness (Acute) Hospital Course: ADMITTED WITH HEADACHES AND PARESTHESIA SYMPTOMS RESOLVED AND MRI NEG FOR CVA PT WAS OUT OF MEDS COMPLIANCE DISCUSSED AND BYSTOLIC ADDED Condition: Stable - Instructions Diet, Activity, Other Instructions: you need to see dr sveta carrasquillo to check blood pressure you need a blood test to check on your muscle enzymes Referrals: Diane Rios MD [Primary Care Provider] - 1 Week - Home Medications Comprehensive Discharge Medication List: Ambulatory Orders Amlodipine Besylate [Norvasc -] 10 mg PO DAILY 02/14/19 Atorvastatin Ca [Lipitor] 40 mg PO HS #30 tablet 02/16/19 Nebivolol [Bystolic -] 5 mg PO DAILY #30 tab 02/16/19
[2019-02-16 14:38] VITALS: BP 130/9; PULSE 78
== END 2019-02-16 15:00 | disposition home or self-care (01) | DRG 47 ==
LOC: JER 08:43 → JERBED 11:28 → J4W 13:24
PROVIDERS: ADMIT Family Medicine; ATTEND Family Medicine
DX: G45.9 Transient cerebral ischemic attack, unspecified (principal); R20.0 Anesthesia of skin; R51 Headache; E78.5 Hyperlipidemia, unspecified; I10 Essential (primary) hypertension; R53.1 Weakness; T46.5X6A Underdosing of other antihypertensive drugs, initial encounter; H53.2 Diplopia
CPT/HCPCS: 36415; 70450-TC; 70551-TC; 71045-TC-FY; 80053; 80061; 81003; 82550; 82553; 83036; 83721; 83735; 84439; 84443; 84484; 84703; 85025; 85610; 93005; 93010; 93880-TC; 99284-25; J0131; J7030

== ENCOUNTER 2023-08-10 12:39 | Emergency (ER) | payer OTHER ==
[2023-08-10 12:45] VITALS: RESP 18; TEMP 97.8; BMI 27.1
[2023-08-10] MEDS ORDERED: predniSONE 20 MG TABLET (UD) ONE (13:53)
[2023-08-10] MEDS ORDERED: ACETAMINOPHEN 325 MG TABLET (FP) ONE (13:54)
[2023-08-10] MEDS: predniSONE 20 MG TABLET (UD) PO ONE (14:03)
[2023-08-10] MEDS: ACETAMINOPHEN 325 MG TABLET (FP) PO ONE (14:03)
[2023-08-10 14:12] LABS: BASO % 0.7 % (0-2.0); EOS % 3.7 % (0-4.5); HEMATOCRIT 37.7 % (32.4-45.2); HEMOGLOBIN 12.4 GM/dL (10.7-15.3); LYMPH % 23.4 % (8-40); MCH 27.5 pg (25.7-33.7); MCHC 32.9 g/dl (32.0-36.0); MEAN CELL VOLUME 83.6 fl (80-96); MEAN PLT VOLUME 7.6 fl (7.5-11.1); MONO % 5.5 % (3.8-10.2); NEUT % 66.7 % (42.8-82.8); PLATELET COUNT 230 10^3/uL (134-434); RBC 4.51 M/mm3 (3.60-5.2); RDW 13.4 % (11.6-15.6); WHITE BLOOD COUNT 5.4 K/mm3 (4.0-10.0)
[2023-08-10 14:36] LABS: POTASSIUM 4.4 mmol/L (3.5-5.1)
[2023-08-10 14:37] LABS: BLOOD UREA NITROGEN 13.5 mg/dL (7-18); CALCIUM 9.8 mg/dL (8.5-10.1)
[2023-08-10 14:41] LABS: BILIRUBIN,TOTAL 0.4 mg/dL (0.2-1); CREATININE 0.7 mg/dL (0.55-1.3); TOT PROT 7.6 g/dl (6.4-8.2)
[2023-08-10 15:14] VITALS: BP 130/79; PULSE 66
== END 2023-08-10 15:22 | disposition home or self-care (01) ==
LOC: JER 12:39
DX: R20.2 Paresthesia of skin (principal)
CPT/HCPCS: 36415; 70450-TC; 80053; 85025; 93005; 93010; 99285-25